=== PATIENT | female | born 1990 | race Two or more races ===

== ENCOUNTER → 2025-01-30 | Outpatient (REF) | payer OTHER | LOC: M PLALAB 10:53 | PROVIDERS: ATTEND Advanced Practice Midwife | DX: Z53.9 Procedure and treatment not carried out, unspecified reason (principal) ==

== ENCOUNTER → 2025-01-30 | Outpatient (CLI) | payer OTHER ==
[2025-01-30 13:26] LABS: PLATELET COUNT, AUTOMATED 332 10^3/uL (150-450)
[2025-01-30 14:05] LABS: Trichomonas vaginalis (AMP) NOT DETECTED (NEGATIVE)
[2025-01-30 14:29] LABS: GC DNA AMPLIFICATION NEGATIVE (NEGATIVE); HIV 1&2 SCREEN NEGATIVE (NEGATIVE)
[2025-01-30 14:38] LABS: HEPATITIS C VIRUS ABY INDEX < 0.02 INDEX (<0.8)
== END ==
LOC: M PLALAB 11:12
PROVIDERS: ATTEND Advanced Practice Midwife
DX: Z34.80 Encounter for supervision of other normal pregnancy, unspecified trimester (principal); Z3A.00 Weeks of gestation of pregnancy not specified

== ENCOUNTER → 2025-03-03 | Outpatient (CLI) | payer OTHER | LOC: M WHC 07:47 | PROVIDERS: ATTEND Advanced Practice Midwife | DX: O09.529 Supervision of elderly multigravida, unspecified trimester (principal) ==

== ENCOUNTER → 2025-03-24 | Outpatient (CLI) | payer OTHER | LOC: M WHC 13:24 | PROVIDERS: ATTEND Obstetrics & Gynecology | DX: Z34.92 Encounter for supervision of normal pregnancy, unspecified, second trimester (principal) ==

== ENCOUNTER → 2025-04-01 | Outpatient (CLI) | payer OTHER ==
[2025-04-01 13:25] LABS: PLATELET COUNT, AUTOMATED 289 10^3/uL (150-450)
[2025-04-01 13:54] LABS: GLUCOSE CHALLENGE TEST 1 HOUR 137 MG/DL (LESS THAN 140)
[2025-04-01 14:21] LABS: HIV 1&2 SCREEN NEGATIVE (NEGATIVE)
[2025-04-01 14:29] LABS: HEPATITIS C VIRUS ABY INDEX 0.08 INDEX (<0.8)
== END ==
LOC: M PLALAB 09:23
PROVIDERS: ATTEND Nurse Practitioner Family
DX: Z34.82 Encounter for supervision of other normal pregnancy, second trimester (principal); Z3A.00 Weeks of gestation of pregnancy not specified

== ENCOUNTER → 2025-04-04 | Outpatient (CLI) | payer OTHER | LOC: M WHC 10:15 | PROVIDERS: ATTEND Nurse Practitioner Family | DX: N63.11 Unspecified lump in the right breast, upper outer quadrant (principal); Z53.9 Procedure and treatment not carried out, unspecified reason ==

== ENCOUNTER → 2025-04-30 | Outpatient (CLI) | payer OTHER | LOC: M WHC 08:50 | PROVIDERS: ATTEND Nurse Practitioner Family | DX: N63.11 Unspecified lump in the right breast, upper outer quadrant (principal) ==

== ENCOUNTER → 2025-05-06 | Outpatient (REF) | payer OTHER | LOC: M PLALAB 10:26 | PROVIDERS: ATTEND Nurse Practitioner Family | DX: N89.8 Other specified noninflammatory disorders of vagina (principal) ==